=== PATIENT | male | born 1950 | race Caucasian/White ===

== ENCOUNTER → 2017-05-17 | Outpatient (CLI) | payer MEDICARE, OTHER ==
--- NOTE | 2017-05-17 17:29 | RAD ---
EXAM DESCRIPTION: Chest,2 Views CLINICAL HISTORY: 67 years Male, CORONARY ARTERIOSCLEROSIS COMPARISON: 1 fibroid 2014 TECHNIQUE: PA/lateral FINDINGS: The patient is poststernotomy. The heart is within range of normal. Peripheral infiltrate is observed in the right upper chest. Left chest is clear. No pleural fluid is seen. IMPRESSION: A patchy right upper lobe infiltrate is observed. Electronically signed by: Mikel Benito MD 05/17/2017 5:28 PM CDT
== END | disposition home or self-care (01) ==
LOC: YCFC.O 08:31
PROVIDERS: ATTEND Nurse Practitioner Family
DX: I25.10 Atherosclerotic heart disease of native coronary artery without angina pectoris (principal); Z12.5 Encounter for screening for malignant neoplasm of prostate; E78.5 Hyperlipidemia, unspecified; Z13.29 Encounter for screening for other suspected endocrine disorder; Z87.438 Personal history of other diseases of male genital organs
CPT/HCPCS: 36415; 71020; 80053; 80061; 84403; 84443; 85025; 93005; G0103

== ENCOUNTER → 2017-08-29 | Outpatient (CLI) | payer MEDICARE, OTHER ==
--- NOTE | 2017-08-29 11:20 | RAD ---
History: Smoking history. Chest x-ray: PA and lateral views are obtained and compared with 04/30/2017. Persistent somewhat irregular asymmetry right upper lung is demonstrated with perihilar density, stable and unchanged in this patient who has had prior mediastinal surgery and coronary stents. No pleural effusion. CT chest is recommended. Left lung remains symmetrically aerated. No bony abnormality. IMPRESSION: Right upper lobe persistent nodular asymmetry with questioned hilar density. CT chest is recommended. Electronically signed by: Claudia French MD 08/29/2017 11:19 AM CDT Workstation: [id number]
== END | disposition home or self-care (01) ==
LOC: RAD 08:37
DX: F17.200 Nicotine dependence, unspecified, uncomplicated (principal)

== ENCOUNTER → 2017-09-24 | Outpatient (CLI) | payer MEDICARE, OTHER ==
--- NOTE | 2017-09-25 08:06 | CT ---
Study: CT Chest. Indication: ABNORMAL XRAY Technique: CT imaging of the chest obtained after intravenous administration of contrast. This exam was performed according to our departmental dose-optimization program, which includes automated exposure control, adjustment of the mA and/or kV according to patient size and/or use of iterative reconstruction technique. Comparison: Radiographs August 29, 2017. Findings: Median sternotomy wires. Atherosclerosis great vessels, aorta, and coronary arteries. Heart size normal. Mildly prominent AP window lymph nodes with the largest measuring up to 10 x 17 mm. Calcified splenic granulomas. No acute osseous abnormality. Within the anterior lateral aspect of the right upper lobe there is a spiculated 14 mm pulmonary nodule with surrounding mild opacity. This in the setting of [id number] emphysema. No pleural effusion or pneumothorax. Impression: 14 mm spiculated pulmonary nodule with surrounding mild opacity in the right upper lobe. Bronchogenic carcinoma should be excluded in the setting of emphysema. Correlation with PET/CT versus biopsy recommended. Indeterminate enlarged AP window lymph nodes. Atherosclerosis. Electronically signed by: Rakan Batres MD 09/25/2017 8:05 AM [facility]
== END | disposition home or self-care (01) ==
LOC: CT 10:00
DX: R93.8 Abnormal findings on diagnostic imaging of other specified body structures (principal)

== ENCOUNTER → 2019-01-26 | Outpatient (CLI) | payer MEDICARE, OTHER | LOC: LAB.O 10:02 | PROVIDERS: ATTEND Nurse Practitioner Family | DX: I10 Essential (primary) hypertension (principal); R97.20 Elevated prostate specific antigen [PSA]; E78.2 Mixed hyperlipidemia ==

== ENCOUNTER → 2019-06-25 | Outpatient (CLI) | payer MEDICARE, OTHER ==
--- NOTE | 2019-06-25 10:43 | RAD ---
EXAM DESCRIPTION: Pelvis CLINICAL HISTORY: 69 years Male, PAIN IN LEFT HIP COMPARISON: None. FINDINGS: Single AP view of the pelvis shows no displaced pelvic fracture or malalignment. Mild bilateral hip joint space narrowing. Vascular calcifications. Degenerative disc disease at L4-5. The sacroiliac joints are fairly well-maintained. IMPRESSION: Mild degenerative changes of both hips and degenerative disc disease at L4-5. Atherosclerotic vascular disease. Electronically signed by: Gautam Chavira MD 06/25/2019 10:41 AM CDT
--- NOTE | 2019-06-25 10:44 | RAD ---
EXAM DESCRIPTION: Knee,Left Complete CLINICAL HISTORY: 69 years Male, PAIN IN LEFT KNEE COMPARISON: None. FINDINGS: Four views of the left knee show no acute fracture or malalignment. Advanced medial joint space narrowing with near [id number]-qcof alignment. Less advanced degenerative changes in the patellofemoral and lateral compartments. Tiny left knee joint effusion. Vascular calcifications. Surgical clips in the soft tissues medial aspect of the left knee. IMPRESSION: Tricompartmental degenerative changes including advanced degenerative changes in the medial compartment. Small left knee joint effusion. Atherosclerotic vascular disease. Electronically signed by: Gautam Chavira MD 06/25/2019 10:42 AM CDT
== END ==
LOC: RAD 08:10
PROVIDERS: ATTEND Orthopaedic Surgery
DX: M17.12 Unilateral primary osteoarthritis, left knee (principal); M16.0 Bilateral primary osteoarthritis of hip; M51.36 Other intervertebral disc degeneration, lumbar region; I70.90 Unspecified atherosclerosis

== ENCOUNTER → 2019-07-06 | Outpatient (CLI) | payer MEDICARE, OTHER ==
--- NOTE | 2019-07-06 12:52 | RAD ---
EXAM DESCRIPTION: Chest,2 Views CLINICAL HISTORY: PRE OP, LEFT TKA COMPARISON: Previous study August 29, 2017 TECHNIQUE: PA/lateral FINDINGS: Sternotomy wires are present. Right hemidiaphragm is mildly elevated. Cardiac bypass graft seen along the right side of the heart. Linear scarring in the right infrahilar and right lower lobe regions. Heart size is normal with normal pulmonary vascularity. No pleural effusion or pneumothorax. Lungs are otherwise clear with no consolidating infiltrate. Lateral view shows intact sternum and T-spine. IMPRESSION: No acute process is identified in the chest. Electronically signed by: Camacho Anne MD 07/06/2019 12:50 PM CDT
== END ==
LOC: LAB.O 10:51
PROVIDERS: ATTEND Orthopaedic Surgery
DX: Z01.818 Encounter for other preprocedural examination (principal); M17.12 Unilateral primary osteoarthritis, left knee; R97.20 Elevated prostate specific antigen [PSA]

== ENCOUNTER 2019-08-04 05:38 | Inpatient (IN) | payer MEDICARE, OTHER ==
--- NOTE | 2019-07-31 08:01 | HP ---
CHIEF COMPLAINT: Left knee pain. HISTORY OF PRESENT ILLNESS: Mr. Sutton is a 69-year-old male with a history of severe pain in the left knee that has been going on for several years. Mr. Sutton has had pain that has been refractory to conservative measures. Because of the refractory nature of this, he has requested operative intervention. Given the severity of his issues, his only operative choice would be total knee arthroplasty. After discussing the risks, benefits and alternatives to that, he has given informed consent for that. With regards to his knee, he has had knee arthroscopy and he is still having pain that is about an 8 most of the time. He has some slight relief with rest and aggravating factors include weightbearing and movement. This has been nontraumatic in onset. PAST SURGICAL HISTORY: 1. Lung lobectomy. MEDICATIONS: 1. Lisinopril. 2. Lovastatin. 3. Metoprolol. 4. Ranitidine. 5. Aspirin. PAIN CONTRACT: None. ALLERGIES: NO KNOWN DRUG ALLERGIES. CODE STATUS: DNR. IMMUNIZATIONS: Up to date. SOCIAL HISTORY: The patient does not use any illicit drugs. He does smoke and does drink on occasion. FAMILY HISTORY: None pertinent to today's complaint. REVIEW OF SYSTEMS: Negative except as indicated in the History of Present Illness. HEENT: The patient reports no symptoms. RESPIRATORY: The patient reports no symptoms. CARDIOVASCULAR: The patient reports no symptoms. GASTROINTESTINAL: The patient reports no symptoms GENITOURINARY: The patient reports no symptoms. MUSCULOSKELETAL: Negative except as noted in History of Present Illness. SKIN: The patient reports no symptoms. NEUROLOGIC: The patient reports no symptoms. PHYSICAL EXAMINATION: VITAL SIGNS: Blood pressure 131/73. Pulse 61. Height 5'6". Weight 140 pounds. MENTAL STATUS: The patient is awake, alert, and is able to give a good history and participate in the physical. The patient is oriented to person, place and time. SKIN: Normal tone and turgor. HEENT: Normocephalic, atraumatic. Pupils equal, round and reactive. Mucosal membranes are moist. NECK: Normal range of motion. No thyromegaly, no lymphadenopathy. CHEST: Normal respiratory excursion. CARDIAC: Regular rate and rhythm. No murmurs, rubs or gallops. MUSCULOSKELETAL: The bilateral upper extremities show full active range of motion without significant pain. He has intact sensation in the extremities and they are warm and well perfused. There is no crepitus and no deformity. He has no swelling and no malalignment. He has full information systems director strength. The right lower extremity shows full range of motion in the hip. He has full extension of the knee and flexion to about 130 degrees. He has intact sensation. There is no varus/valgus or anterior/posterior laxity. Strength is 5/5. The left lower extremity has full range of motion of the hip. He has slight valgus deformity to the knee. There is slight laxity in valgus stress testing. There is negative anterior drawer. There is moderate effusion. He has intact sensation. Strength is 5/5. He has full extension. Flexion is to about 120 degrees, but he has crepitus throughout that range. He has full range of motion in both ankles as well as both lower extremity digits. RADIOLOGY: My read of the x-rays shows severe arthritis with valgus deformity. ASSESSMENT: 1. Severe arthritis. PLAN: The plan at this point is for total knee arthroplasty. We have discussed the risks, benefits, and alternatives to that and the patient has given informed consent. [id number]
[~2019-08-04 05:38] MED LIST: MIDAZOLAM INJ 2 MG/2 ML VIAL ONE
[2019-08-04] MEDS ORDERED: SODIUM CHL 0.9% 100ML MINI-BAG 100 ML IVPB ONE (05:47)
[2019-08-04] MEDS ORDERED: TRANEXAMIC ACID 1,000 MG/10 ML VIAL ONE ×2 (05:48→05:49)
[2019-08-04] MEDS ORDERED: VANCOMYCIN HCL INJ 1,000 MG VIAL IVPB ONE ×3 (05:48→20:10)
[2019-08-04] MEDS ORDERED: SODIUM CHLORIDE 0.9% 250ML 250 ML ONE ×3 (05:48→20:09)
[2019-08-04] MEDS ORDERED: SODIUM CHLORIDE 0.9% 100ML 100 ML IVPB ONE (05:48)
[2019-08-04] MEDS ORDERED: LACTATED RINGERS 1,000 ML ONE ×2 (05:48→09:43)
[2019-08-04] MEDS ORDERED: ceFAZolin SODIUM 1 GM VIAL ONE ×2 (05:48→06:22)
[2019-08-04] MEDS ORDERED: MIDAZOLAM INJ 5 MG/5 ML VIAL ONE (06:34)
[2019-08-04] MEDS ORDERED: ACETAMINOPHEN IV 1000MG 100 ML ONE (06:34)
[2019-08-04] MEDS ORDERED: fentaNYL CITRATE INJ 50 MCG/ML AMP ONE (06:34)
[2019-08-04] MEDS ORDERED: MORPHINE SULFATE *EPIDURAL* 0.5 MG/ML VIAL ONE (06:34)
[2019-08-04] MEDS ORDERED: KETAMINE HCL 50 MG/ML SYG IV ONE (06:45)
[2019-08-04] MEDS ORDERED: TEMAZEPAM 15 MG CAP PO PRN (07:03)
[2019-08-04] MEDS ORDERED: SODIUM CHLORIDE 0.9% (FLUSH) 10 ML SYG IV PRN (07:03)
[2019-08-04] MEDS ORDERED: NALOXONE HCL INJ 0.4 MG/ML VIAL IV PRN (07:03)
[2019-08-04] MEDS ORDERED: MORPHINE SULFATE INJ 10 MG/ML VIAL IV PRN (07:03)
[2019-08-04] MEDS ORDERED: BENZOCAINE-MENTH LOZ (CEPACOL) 1 EA LOZ MT PRN (07:03)
[2019-08-04] MEDS ORDERED: PROMETHAZINE HCL INJ 12.5 MG in SODIUM CHLORIDE 0.9% 50ML 50 ML IVPB PRN (07:03)
[2019-08-04] MEDS ORDERED: HYDROcodone 5MG/APAP 325MG 1 EA TAB PO PRN (07:03)
[2019-08-04] MEDS ORDERED: BISACODYL SUPPOSITORY 10 MG PR PRN (07:03)
[2019-08-04] MEDS ORDERED: ZOLPIDEM TARTRATE 5 MG TAB PO PRN (07:03)
[2019-08-04] MEDS ORDERED: MAGNESIUM HYDROXIDE 30 ML UD PO PRN (07:03)
[2019-08-04] MEDS ORDERED: traMADol HCL 50 MG TAB PO PRN (07:03)
[2019-08-04] MEDS ORDERED: ACETAMINOPHEN 325 MG TAB PO PRN (07:03)
[2019-08-04] MEDS ORDERED: ACETAMINOPHEN 500 MG TAB PO PRN (07:03)
[2019-08-04] MEDS ORDERED: TRANEXAMIC ACID INJ 1,000 MG in SODIUM CHLORIDE 0.9% 100ML 100 ML IVPB ONE (07:03)
[2019-08-04] MEDS ORDERED: ALUMINUM & MAGNESIUM HYDROXIDE 30 ML UD PO PRN (07:03)
[2019-08-04] MEDS ORDERED: ONDANSETRON INJ 4 MG/2 ML VIAL IV PRN (07:03)
[2019-08-04] MEDS ORDERED: PROMETHAZINE HCL INJ 25 MG in SODIUM CHLORIDE 0.9% 50ML 50 ML IVPB PRN (07:03)
[2019-08-04] MEDS ORDERED: MORPHINE SULFATE INJ 10 MG/ML VIAL IM PRN (07:03)
[2019-08-04] MEDS ORDERED: MORPHINE PCA 1 MG/ML 100 ML BAG IVPB SCH (07:30)
[2019-08-04] MEDS: VANCOMYCIN HCL INJ 1,000 MG VIAL IVPB ONE ×2 (07:48→08:36)
[2019-08-04] MEDS: ceFAZolin SODIUM 1 GM VIAL ONE ×2 (07:48→08:36)
[2019-08-04] MEDS: BUPIVACAINE 0.5% 30 ML VIAL INJ ONE ×2 (07:49→08:36)
[2019-08-04] MEDS: BUPIVACAINE LIPOSOME 13.3 MG/ML VIAL INJ ONE ×2 (07:49→08:36)
[2019-08-04] MEDS ORDERED: ePHEDrine SULF 50 MG/ML IV ONE (10:00)
[2019-08-04] MEDS ORDERED: SODIUM CHLORIDE 0.9% 50 ML VIAL INJ ONE (10:00)
[2019-08-04] MEDS ORDERED: diphenhydrAMINE HCL 50 MG/ML VIAL IV ONE (10:00)
[2019-08-04] MEDS ORDERED: DEXAMETHASONE INJ 10 MG/ML VIAL IV ONE (10:00)
[2019-08-04] MEDS ORDERED: LIDOCAINE 1% 10 ML VIAL INJ ONE (10:00)
[2019-08-04] MEDS ORDERED: raNITIdine HCL INJ 25 MG/ML VIAL IV ONE (10:00)
[2019-08-04] MEDS ORDERED: MAGNESIUM SULFATE INJ 1 GM/2 ML VIAL IVPB ONE (10:00)
[2019-08-04] MEDS ORDERED: PROPOFOL 200 MG/20 ML VIAL IV ONE (10:00)
[2019-08-04] MEDS: MAGNESIUM OXIDE 400 MG TAB PO SCH (12:34)
[2019-08-04] MEDS: CELECOXIB 100 MG CAP PO SCH ×2 (12:34→17:34)
[2019-08-04] MEDS: IV SET AND CAP CHANGE INJ INJ SCH (12:35)
[2019-08-04] MEDS: NICOTINE PATCH 14 MG TD SCH ×2 (13:27→21:47)
[2019-08-04] MEDS ORDERED: ceFAZolin SODIUM 2 GRAMS PREMI 50 ML IVPB ONE ×2 (15:44→20:09)
[2019-08-04] MEDS: ceFAZolin SODIUM 2 GRAMS PREMI 2 GM in PREMIX BAG 1 BAG IVPB SCH (16:05)
[2019-08-04] MEDS: VANCOMYCIN HCL INJ 1,000 MG in SODIUM CHLORIDE 0.9% 250ML 250 ML IVPB SCH (17:38)
[2019-08-04] MEDS: DEX 5% W/NACL 0.45% 1000ML 1,000 ML IVS PRN (19:03)
[2019-08-04] MEDS ORDERED: ENOXAPARIN SODIUM 30 MG/0.3 ML SYG SUBCU ONE (20:09)
--- NOTE | 2019-08-04 20:39 | CONS ---
DATE OF CONSULTATION: 08/04/19 SUPERVISING PHYSICIAN: Mike Anderson M.D. REASON FOR CONSULTATION: Medical management post total left knee. HISTORY OF PRESENT ILLNESS: Mr. Sutton is a 69 year-old male patient that has a longstanding history of severe pain in his left knee. The pain had been not responding to any certain extent to conservative treatment measures. 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 Given that he had attempted multiple outpatient treatment plans with no results, he requested elective total knee arthroplasty for pain relief. He has also had knee arthroscopy for almost 8 times without any significant relief. He was denying any trauma to the knee. He was admitted for elective left total knee arthroplasty. He had no intraoperative complications. He was seen in the immediate postoperative state and was in stable condition. PAST MEDICAL HISTORY: 1. Hyperlipidemia. 2. Chronic nicotine addiction in a smoker. 3. Essential hypertension. 4. Coronary artery disease. 5. Benign prostatic hypertrophy. 6. History of right lung cancer with a right upper lobe lobectomy in 2019. PAST SURGICAL HISTORY: 1. Coronary artery bypass graft in 2013. 2. Right upper lobectomy in 2018. HOME MEDICATIONS: 1. Lisinopril 40 mg daily. 2. Lovastatin 20 mg daily. 3. Aspirin 81 mg daily. 4. Metoprolol 50 mg b.i.d. 5. Ranitidine 150 mg daily. ALLERGIES: NO KNOWN DRUG ALLERGIES. FAMILY HISTORY: Noncontributory, but he does have a history of malignant tumors in the mouth in his mother. Father had a myocardial infarction and at age 43. He has 1 sister who had ALS. SOCIAL HISTORY: The patient is a trucker hand. He is . Lives in [place], [place] by himself. He does smoke approximately a pack of cigarettes a day and drinks 3 to 4 beers every other day on a regular basis. He denies any illicit drugs. REVIEW OF SYSTEMS: CONSTITUTIONAL: Denies any fevers, chills, general malaise or unexplained weight loss. HEENT: Negative for any headaches, vision changes, ear aches, sore throat or nasal congestion. RESPIRATORY: Denies any shortness of breath, wheezing or coughing. CARDIOVASCULAR: Denies any chest pains, palpitations or syncopal episodes. GASTROINTESTINAL: Denies any nausea, vomiting, diarrhea, constipation or abdominal pains. GENITOURINARY: Denies any dysuria, hematuria or polyuria. MUSCULOSKELETAL: As noted in history of present illness. NEUROLOGIC: Denies any ataxia, seizures, syncopal episodes or other neurological deficits. SKIN: Denies any unexplained lesions, rashes or moles. HEMATOLOGIC: Denies any easy bleeding or unexplained bruising or transfusion reactions. PHYSICAL EXAMINATION: VITAL SIGNS: Temperature 97.6, pulse 53, blood pressure 123/74, respirations 16, satting 100% on 2 liters nasal cannula. Admission weight is 65.2 kg. GENERAL: The patient is resting comfortably visiting with family. Appears to be in no acute distress. He is alert. HEENT: Tympanic membranes are clear bilaterally. Oropharynx is pink and moist without any lesions. NECK: Supple, non-tender. Full range of motion. No jugular venous distention. CHEST: Lung sounds are clear to auscultation bilaterally without any rhonchi, wheezing or rales. HEART: Regular rate and rhythm without appreciable murmurs, gallops, or rubs. ABDOMEN: Soft, non-tender. Positive bowel sounds. EXTREMITIES: Left knee has an Iceman dressing in place. Distally pulses are strong. Capillary refill is brisk. The patient still has a spinal block in place that was placed at surgery. NEUROLOGIC: He is alert and oriented times three. Cranial nerves II-XII are grossly intact. LABORATORY: Preoperative drug screen was negative. RADIOLOGY: No radiographic studies for review. ASSESSMENT: 1. Postoperative day #0 for a left total knee arthroplasty having failed to respond to conservative outpatient treatment measures. Surgery performed by Dr. Michael Mcdonough. 2. Chronic hyperlipidemia. 3. Chronic nicotine dependency in a smoker. 4. Essential hypertension. 5. Coronary artery disease with a history of coronary artery bypass graft in 2013. 6. Benign prostatic hypertrophy. 7. History of right lung cancer with a right upper lobectomy. PLAN: Will follow the patient as he continues to progress through his postoperative phase, physical therapy and rehabilitation efforts. I will review his medications and update those, and restart those as appropriate to care. He remains on DVT prophylaxis per protocol. Given that he has nicotine addiction and a 1 pack a day smoker, I have also started him on a nicotine patch. Will anticipate his length of stay to be 2 to 3 days. I did discuss rehabilitation after discharge. The family wants to take him to [place] where they live. We discussed that [facility] would be an option in [place] and I did call Damari with [facility] in [place] and she would be glad to do a consultation and facilitate that arrangement for the patient to go to rehab in [place]. Until he can transfer to outpatient management will continue to monitor and treat as needed. #[id number] [facility]
[2019-08-04] MEDS: METOPROLOL TARTRATE 50 MG TAB PO SCH (20:58)
[2019-08-04] MEDS: SIMVASTATIN 10 MG TAB PO SCH (20:58)
[2019-08-04] MEDS: DOCUSATE CALCIUM 240 MG CAP PO SCH (20:58)
[2019-08-04] MEDS: ENOXAPARIN SODIUM 30 MG/0.3 ML SYG SUBCU SCH (22:34)
[2019-08-05] MEDS: ceFAZolin SODIUM 2 GRAMS PREMI 2 GM in PREMIX BAG 1 BAG IVPB SCH ×2 (00:03→09:52)
[2019-08-05] MEDS: VANCOMYCIN HCL INJ 1,000 MG in SODIUM CHLORIDE 0.9% 250ML 250 ML IVPB SCH (06:02)
[2019-08-05] MEDS ORDERED: ceFAZolin SODIUM 2 GRAMS PREMI 50 ML IVPB ONE (07:09)
--- NOTE | 2019-08-05 08:25 | RAD ---
PROVIDED CLINICAL HISTORY/REASON FOR EXAM: LEFT TKA Findings/impression: One intraoperative fluoroscopic image of a left knee arthroplasty. No hardware complication identified. Dose: Not documented Time: Five seconds Electronically signed by: Roberto Tovar MD 08/05/2019 8:23 AM CDT
[2019-08-05] MEDS: NICOTINE PATCH 14 MG TD SCH (09:31)
[2019-08-05] MEDS: ASPIRIN (ENTERIC COATED) 81 MG TAB PO SCH (09:31)
[2019-08-05] MEDS: METOPROLOL TARTRATE 50 MG TAB PO SCH ×2 (09:31→20:56)
[2019-08-05] MEDS: CELECOXIB 100 MG CAP PO SCH ×2 (09:31→17:10)
[2019-08-05] MEDS: MAGNESIUM OXIDE 400 MG TAB PO SCH (09:31)
[2019-08-05] MEDS: LISINOPRIL 10 MG TAB PO SCH (09:32)
--- NOTE | 2019-08-05 09:50 | OP ---
DATE OF PROCEDURE: 08/04/19 PREOPERATIVE DIAGNOSIS: 1. Osteoarthritis of the knee. POSTOPERATIVE DIAGNOSIS: 1. Osteoarthritis of the knee. PROCEDURE: 1. Total knee arthroplasty. SURGEON: Michael Mcdonough MD. MIX MAKER: Darren Mace CST, SA-C. ANESTHESIA: General anesthesia. COMPLICATIONS: None. FINDINGS: Severe arthritis of the knee. INDICATION: Mr. Sutton has a history of severe pain getting progressively worse. Because of the ongoing pain, he has requested operative intervention. After discussing the risks, benefits and alternatives to that, the patient has given informed consent for total knee arthroplasty. PROCEDURE: The patient was brought to the Operating Room and placed in supine position. General anesthesia was induced and the patient's leg was sterilely prepped and draped. Following prepping and draping, the distal femur was exposed and using an intramedullary guide, the distal femoral cut was made. The appropriate sized cutting block was measured, pinned into place, and the anterior, posterior, and chamfer cuts were made. The ACL was transected and the tibia was subluxed. Both the medial and lateral menisci were removed. An intramedullary guide was used to make the proximal tibial cut. The appropriate sized base plate was placed and a trial polyethylene was placed. The trial femur was placed, the knee was reduced, and the knee was taken through a range of motion. The knee was stable in anterior, posterior, varus and valgus stress. The patella tracked anatomically without evidence of subluxation or dislocation. After trialing, the trial components were removed and the bony surfaces were thoroughly irrigated with saline. Following irrigation, the surfaces were dried and the final components were cemented into place. The excess cement was removed and the remaining cement was allowed to cure. The knee was again taken through a range of motion to confirm stability. The wound was then irrigated with saline and closure was performed using PDS to approximate the arthrotomy followed by closure of the subcutaneous tissues with a combination of running and interrupted Monocryl sutures. Sterile dressing was placed. The patient was awoken from anesthesia and taken to Recovery. POSTOPERATIVE PLAN: The patient will be weight-bearing as tolerated on postoperative day 1. COMPONENTS: [email or web address] Triathlon knee, size 4 femur, size 4 tibia, 11 mm insert. #[id number] [facility]
[2019-08-05] MEDS: ENOXAPARIN SODIUM 30 MG/0.3 ML SYG SUBCU SCH ×2 (10:27→23:02)
--- NOTE | 2019-08-05 11:28 | RAD ---
EXAM DESCRIPTION: Knee,Left 1 or 2 Views CLINICAL HISTORY: 69 years Male, TKA TECHNIQUE: 2 views of the left knee were performed. COMPARISON: None available. FINDINGS: The visualized bones appear well mineralized changes of total knee arthroplasty with expected postsurgical changes in the surrounding soft tissues. IMPRESSION: Changes of total knee arthroplasty with expected postsurgical changes in the surrounding soft tissues. Electronically signed by: Bonnie Campbell MD 08/05/2019 11:26 AM CDT
[2019-08-05] MEDS: HYDROcodone 10MG/APAP 325MG 1 EA TAB PO PRN (18:15)
[2019-08-05] MEDS: CYCLOBENZAPRINE HCL 10 MG TAB PO PRN (18:15)
[2019-08-05] MEDS: DEX 5% W/NACL 0.45% 1000ML 1,000 ML IVS PRN (19:45)
[2019-08-05] MEDS: SIMVASTATIN 10 MG TAB PO SCH (20:56)
[2019-08-05] MEDS: DOCUSATE CALCIUM 240 MG CAP PO SCH (20:56)
[2019-08-06] MEDS: HYDROcodone 10MG/APAP 325MG 1 EA TAB PO PRN ×3 (06:24→20:23)
[2019-08-06] MEDS: CYCLOBENZAPRINE HCL 10 MG TAB PO PRN ×2 (08:53→20:23)
[2019-08-06] MEDS: CELECOXIB 100 MG CAP PO SCH ×2 (08:54→17:42)
[2019-08-06] MEDS: MAGNESIUM OXIDE 400 MG TAB PO SCH (08:54)
[2019-08-06] MEDS: METOPROLOL TARTRATE 50 MG TAB PO SCH ×2 (08:54→20:12)
[2019-08-06] MEDS: NICOTINE PATCH 14 MG TD SCH (08:55)
[2019-08-06] MEDS: SODIUM CHLORIDE 0.9% (FLUSH) 10 ML SYG IV SCH ×2 (09:04→20:12)
[2019-08-06] MEDS: ASPIRIN (ENTERIC COATED) 81 MG TAB PO SCH (09:04)
[2019-08-06] MEDS: LISINOPRIL 10 MG TAB PO SCH (09:04)
--- NOTE | 2019-08-06 09:50 | PN ---
SUPERVISING PHYSICIAN: Mike Anderson MD DATE: 08/05/19 SUBJECTIVE: The patient continues to do well with rehabilitation. He has good control of his pain management. He has no further complaints. OBJECTIVE: VITAL SIGNS: Temperature 98.1. Pulse 78. Blood pressure 167/85. Respirations 18. Saturation 94% on room air. GENERAL: The patient is resting comfortably, appears in no acute distress. CHEST: Lung sounds are clear to auscultation. HEART: Regular rate and rhythm. ABDOMEN: Soft, nontender. Positive bowel sounds. EXTREMITIES: Left knee has a large bulky dressing is in place and is clean and dry. Distal pulses are strong. Capillary refills is brisk. NEUROLOGIC: Alert and oriented times three. LABORATORY: Postoperative hemoglobin 11.9, hematocrit 35.0. ASSESSMENT: 1. Postoperative day #1 for a left total knee arthroplasty having failed to respond to conservative outpatient treatment measures. Surgery performed by Dr. Michael Mcdonough. 2. Chronic hyperlipidemia. 3. Chronic nicotine dependency in a current smoker. 4. Essential hypertension. 5. Coronary artery disease with a history of coronary artery bypass graft in 2013. 6. Benign prostatic hypertrophy. 7. History of right lung cancer with a right upper lobectomy. PLAN: We will continue to follow the patient as he progresses through his physical therapy efforts. I encouraged good pulmonary hygiene. I encouraged him to use pain control prior to physical therapy efforts. At this point, plan for outpatient therapy through [facility]. I have discussed this and Damari has been to see the patient and is working on arrangements. We will anticipate hopefully discharging either Saturday or Saturday. Until then, we will continue to monitor and treat as needed. #[id number] [facility]
--- NOTE | 2019-08-06 09:58 | PN ---
DATE: 08/05/19 SUBJECTIVE: Mr. Sutton is doing well. He has no significant pain. OBJECTIVE: Afebrile. Vital signs stable. Dressing is clean, dry and intact. ASSESSMENT: Status post total knee arthroplasty. PLAN: The plan at this point is begin weightbearing as tolerated today. #[id number] [facility]
--- NOTE | 2019-08-06 09:59 | PN ---
DATE: 08/06/19 SUBJECTIVE: Mr. Sutton is doing well. He has no significant pain. OBJECTIVE: Afebrile. Vital signs stable. Wound is clean. There are no signs or symptoms of infection. ASSESSMENT: Status post total knee arthroplasty. PLAN: The plan at this point is to continue with weightbearing as tolerated today. [facility][id number] [facility]
[2019-08-06] MEDS: ENOXAPARIN SODIUM 30 MG/0.3 ML SYG SUBCU SCH ×2 (11:14→23:11)
[2019-08-06] MEDS: DOCUSATE CALCIUM 240 MG CAP PO SCH (20:12)
[2019-08-06] MEDS: SIMVASTATIN 10 MG TAB PO SCH (20:12)
--- NOTE | 2019-08-06 20:48 | PN ---
DATE: 08/06/19 SUPERVISING PHYSICIAN: Mike Anderson M.D. SUBJECTIVE: The patients is doing well with his physical therapy. He has had good pain control. He has had no further complaints. OBJECTIVE: VITAL SIGNS: temperature 98.4, pulse 58, blood pressure 159/85, respirations 16 to 18, satting 96% on room air. GENERAL: The patient is resting comfortably. Appears to be in no acute distress. He is alert. CHEST: Clear to auscultation. HEART: Regular rate and rhythm. ABDOMEN: Soft, non-tender. Positive bowel sounds. EXTREMITIES: Left leg now has an island dressing in place which is clean and dry with no signs of infection or drainage. Distally pulses are strong. Capillary refill is brisk. NEUROLOGIC: He is alert and oriented times three. LABORATORY: No additional laboratory studies. RADIOLOGY: No additional radiographic studies. ASSESSMENT: 1. Postoperative day #2 for a left total knee arthroplasty having failed to respond to conservative outpatient treatment measures. Surgery performed by Dr. Michael Mcdonough. 2. Chronic hyperlipidemia. 3. Chronic nicotine dependency in a current smoker. 4. Essential hypertension. 5. Coronary artery disease with a history of coronary artery bypass graft in 2013. 6. Benign prostatic hypertrophy. 7. History of right lung cancer with a right upper lobectomy. PLAN: Will continue to follow the patient through his physical therapy and rehabilitation efforts. Plans have been secured for [facility] in [place]. The nurses have all of the logistics and numbers for transport. There may need to be a dock to dock which will be determined tomorrow. Until we can transfer him to [facility] in [place] will continue to monitor and treat as needed. [facility][id number] [facility]
[2019-08-07] MEDS: CELECOXIB 100 MG CAP PO SCH (07:19)
[2019-08-07] MEDS: IV SET AND CAP CHANGE INJ INJ SCH (07:20)
[2019-08-07 08:20] VITALS: BP 131/75; TEMP 98.4; O2SAT 95
[2019-08-07] MEDS: SODIUM CHLORIDE 0.9% (FLUSH) 10 ML SYG IV SCH (09:20)
[2019-08-07] MEDS: MAGNESIUM OXIDE 400 MG TAB PO SCH (09:20)
[2019-08-07] MEDS: ASPIRIN (ENTERIC COATED) 81 MG TAB PO SCH (09:20)
[2019-08-07] MEDS: LISINOPRIL 10 MG TAB PO SCH (09:20)
[2019-08-07] MEDS: NICOTINE PATCH 14 MG TD SCH (09:20)
[2019-08-07] MEDS: METOPROLOL TARTRATE 50 MG TAB PO SCH (09:20)
[2019-08-07] MEDS: HYDROcodone 10MG/APAP 325MG 1 EA TAB PO PRN (10:16)
--- NOTE | 2019-08-07 10:49 | DS ---
SUPERVISING PHYSICIAN: Mike Anderson MD DISCHARGE DIAGNOSIS: 1. Postoperative day #3 for a left total knee arthroplasty having failed to respond to conservative outpatient treatment measures. Surgery was performed by Dr. Michael Mcdonough, orthopedic surgeon. 2. Chronic hyperlipidemia. 3. Chronic nicotine dependency in a current smoker. 4. Essential hypertension. 5. Coronary artery disease with a history of coronary artery bypass graft in 2013. 6. Benign prostatic hypertrophy. 7. History of right lung cancer with a right upper lobectomy. HISTORY OF PRESENT ILLNESS: This is a 69-year-old male patient that has a longstanding history of severe pain in his left knee. The pain had not responded to any conservative treatment measures. 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 He requested elective total knee arthroplasty for pain relief by Dr. Michael Mcdonough, orthopedic surgeon. On the day of admission, he was taken to the Operating Room for an elective left total knee arthroplasty. He had no intraoperative complications. He was seen in the immediate postoperative state on the Medical/Surgical Floor and was in stable condition. HOSPITAL COURSE: The patient went through the routine postoperative treatment and therapy without any problems. He was titrated off of his ANTIQUE DEALER and switched to oral pain medications. His home medications were re-started. A nicotine patch was ordered for him. Smoking cessation was also discussed. He was on DVT prophylaxis during his stay here. The family lives in [place] and they requested that he be discharged from here to [facility] in [place]. [facility] in [place] has accepted him and he will be discharged to [facility] in [place] in stable condition. LABORATORY: Hemoglobin 11.9 and hematocrit 35.0. Urine drug screen was negative. X-rays are per the EMR. Surgery notes are per the EMR. DISCHARGE PLAN: In addition to his routine medications, he will be continued on 8 additional days of Xarelto as well as his pain medication and his Flexeril. He is to followup with Dr. Mcdonough after discharge from [facility]. He is to resume his previous diet and his activity is as per Physical Therapy. He is to return to the hospital or followup with Dr. Mcdonough for any problems or complications. DISCHARGE MEDICATIONS: 1. Ranitidine. 2. Metoprolol. 3. Lovastatin. 4. Lisinopril. 5. Aspirin. 6. Cyclobenzaprine. 7. Hydrocodone. 8. Nicotine patches. 9. Xarelto. [facility][id number] [facility]
--- NOTE | 2019-08-07 13:40 | PN ---
DATE: 08/07/19 SUBJECTIVE: Mr. Sutton is doing well. He is walking and is up to a chair right now. OBJECTIVE: Afebrile. Vital signs stable. Wound is clean. There are no signs or symptoms of infection. ASSESSMENT: Status post total knee arthroplasty. PLAN: The plan at this point is for him to be transferred to inpatient rehab in [place] per his request. #[id number] [facility]D
[2019-08-07] MEDS ORDERED: BISACODYL SUPPOSITORY 10 MG PR ONE (21:00)
[2019-08-07] MEDS ORDERED: MAGNESIUM HYDROXIDE 30 ML UD PO ONE (21:00)
== END 2019-08-07 10:35 | DRG 470 ==
LOC: AMB 05:38 → MS 10:40
PROVIDERS: ADMIT Orthopaedic Surgery; ATTEND Nurse Practitioner Acute Care
PROC: 0SRD0J9 Replacement of Left Knee Joint with Synthetic Substitute, Cemented, Open Approach (ICD-10-PCS; principal; 2019-08-04 06:49)
DX: M17.12 Unilateral primary osteoarthritis, left knee (principal); E78.5 Hyperlipidemia, unspecified; I10 Essential (primary) hypertension; N40.0 Benign prostatic hyperplasia without lower urinary tract symptoms; I25.10 Atherosclerotic heart disease of native coronary artery without angina pectoris; F17.210 Nicotine dependence, cigarettes, uncomplicated; Z66 Do not resuscitate; Z90.2 Acquired absence of lung [part of]; Z95.1 Presence of aortocoronary bypass graft; Z79.82 Long term (current) use of aspirin; Z85.118 Personal history of other malignant neoplasm of bronchus and lung; Z79.899 Other long term (current) drug therapy

== ENCOUNTER 2020-02-11 10:50 | Emergency (ER) | payer MEDICARE, OTHER ==
--- NOTE | 2020-02-11 11:09 | ED.PDOC ---
History of Present Illness - General Stated Complaint: tingling sensation in the right lower extremity Time Seen by Provider: 02/11/20 11:03 Additional Information: this is a 69 year old male, that presents after he is noticing like his righ leg is asleep. patient describes it a tingling sensation patients is able to walk and with a steady gait, patient stated that he was working yesterday and he kept going up and down [employer] and at the end of the day he started feeling some and pain and could not finish his job patient is a smoker and has had an history of coronary artery disease and CABG - History of Present Illness Timing/Duration: other - yesterday Improving Factors: nothing Worsening Factors: nothing Associated Symptoms: denies symptoms Allergies/Adverse Reactions: Allergies NO KNOWN ALLERGY Allergy (Unverified 02/11/20 11:06) Home Medications: Ambulatory Orders Aspirin [Aspirin Adult Low Strengt] 81 mg PO DAILY 07/31/19 Lisinopril 40 mg PO DAILY 07/31/19 Lovastatin 20 mg PO DAILY 07/31/19 Metoprolol Tartrate 50 mg PO BID 07/31/19 Ranitidine HCl [Acid Shoe Lining Fitter] 150 mg PO DAILY 07/31/19 Cyclobenzaprine HCl [Flexeril] 10 mg PO Q8H PRN tab 08/07/19 HYDROcodone 5MG/APAP 325MG [[place] 5/325] 1 ea PO Q4H PRN tab 08/07/19 Nicotine Patch 14 mg [Habitrol Patch 14mg] 1 ea TD DAILY patch 08/07/19 Rivaroxaban [Xarelto] 10 mg PO DAILY #8 tab 08/07/19 Tramadol HCl 50 mg PO Q6HR #20 tab 02/11/20 Review of Systems - Review of Systems Constitutional: States: no symptoms reported EENTM: States: no symptoms reported Respiratory: States: no symptoms reported Cardiology: States: no symptoms reported Gastrointestinal/Abdominal: States: no symptoms reported Genitourinary: States: no symptoms reported Musculoskeletal: States: no symptoms reported Skin: States: no symptoms reported Neurological: States: no symptoms reported Endocrine: States: no symptoms reported Hematologic/Lymphatic: States: no symptoms reported Past Medical History (General) - Patient Medical History Hx Seizures: No Hx Stroke: No Hx Asthma: No Hx of COPD: No Hx Congestive Heart Failure: No Hx Pacemaker: No Hx Hypertension: Yes Hx Diabetes: No Hx MRSA: No - Social History Hx Alcohol Use: No Hx Substance Use: No Hx Physical Abuse: No Hx Emotional Abuse: No Family Medical History - Family History Mother Family History: Unknown Physical Exam - Physical Exam General Appearance: Alert, Anxious, Comfortable, Well Developed, Well Groomed, Well Hydrated, Well Nourished Eye Exam: bilateral normal Ears, Nose, Throat: hearing grossly normal, normal ENT inspection, normal pharynx Neck: non-tender, full range of motion, supple, normal inspection, carotid bruit Respiratory: chest non-tender, lungs clear, normal breath sounds, no respiratory distress, no accessory muscle use Cardiovascular/Chest: normal peripheral pulses, regular rate, rhythm, no edema, no gallop, no JVD, no murmur Gastrointestinal/Abdominal: normal bowel sounds, non tender, soft, no organomegaly, no pulsatile mass Back Exam: normal inspection, no CVA tenderness, no vertebral tenderness Extremity: normal range of motion, non-tender, normal inspection, no pedal edema, normal capillary refill 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 Patient has not had any back pain. No trauma, patient does this that He has had an history of peripheral vascular disease, on physical exam the leg was warm to touch. Will order labs, head ct , right lower extremity venous/arterial duppler dopplex patient has no neurological deficits and no distress 02/11/20 13:21 no dvt on ultrasound but extensive artherosclerosis seen in patient right leg but with no acute claudication. patient is pain free and doest appeart in any distress and will be discharge home with Tramadol, outpatient follow up with vascular surgeon keep extremity elevated and may use ice packs - EKG/XRAY/CT EKG: Felipe - sinus bradycardia, no st elevation, no depression, no acute ischemic changes Departure - Departure Clinical Impression: Peripheral vascular disease Disposition: Discharge to Home or Self Care Instructions: Peripheral Vascular (Arterial) Disease (DC) Referrals: Ann Jara NP [Primary Care Provider] - 1-2 Weeks Prescriptions: Tramadol HCl 50 mg PO Q6HR #20 tab Home Medications: Ambulatory Orders Aspirin [Aspirin Adult Low Strengt] 81 mg PO DAILY 07/31/19 Lisinopril 40 mg PO DAILY 07/31/19 Lovastatin 20 mg PO DAILY 07/31/19 Metoprolol Tartrate 50 mg PO BID 07/31/19 Ranitidine HCl [Acid Shoe Lining Fitter] 150 mg PO DAILY 07/31/19 Cyclobenzaprine HCl [Flexeril] 10 mg PO Q8H PRN tab 08/07/19 HYDROcodone 5MG/APAP 325MG [[place] 5/325] 1 ea PO Q4H PRN tab 08/07/19 Nicotine Patch 14 mg [Habitrol Patch 14mg] 1 ea TD DAILY patch 08/07/19 Rivaroxaban [Xarelto] 10 mg PO DAILY #8 tab 08/07/19 Tramadol HCl 50 mg PO Q6HR #20 tab 02/11/20 Additional Instructions: keep extremity elevated, may use ice packs and please follow up with vascular surgeon
--- NOTE | 2020-02-11 11:35 | RAD ---
EXAM DESCRIPTION: Chest,1 View CLINICAL HISTORY: 69 years Male, right leg tingling COMPARISON: None. TECHNIQUE: AP portable chest. FINDINGS: Heart size is normal with normal pulmonary vascularity. No consolidating infiltrate. Sternotomy wires are present. No pulmonary mass or worrisome nodule. No pneumothorax or pleural effusion. Bones are unremarkable. IMPRESSION: Clear lungs. No consolidating infiltrate. Electronically signed by: Camacho Anne MD 02/11/2020 11:34 AM CDT
--- NOTE | 2020-02-11 11:41 | CT ---
EXAM DESCRIPTION: CT head without contrast CLINICAL HISTORY: tingling COMPARISON: None available TECHNIQUE: Noncontrast head CT was performed with routine protocol. FINDINGS: Normal sherman-white matter differentiation. Ventricles and sulci are normal for age. No high density hemorrhage, focal edema or shift of the midline. No sulcal effacement. Normal orbital contents. Basilar cisterns appear clear. Cerumen accumulation in the left external auditory canal. Intact calvarium with no fracture or lytic lesion. Calcified intracranial internal carotid arteries. Normal aeration of tympanic cavities and mastoid air cells. Hypoplastic right maxillary sinus with nodular mucosal thickening. Left maxillary sinus is clear. Patchy opacification of ethmoid air cells.. Skull base appears intact. Symmetrical internal auditory canals. IMPRESSION: No acute intracranial pathologic process. This exam was performed according to our departmental dose-optimization program, which includes automated exposure control, adjustment of the mA and/or kV according to patient size and/or use of iterative reconstruction technique. Total DLP equals 859.97 mGycm. Electronically signed by: Camacho Anne MD 02/11/2020 11:40 AM CDT
--- NOTE | 2020-02-11 13:10 | US ---
EXAM DESCRIPTION: Extremity,Lower RT Arteries (accession [id number]), Venous,Lower Extremity RT (accession [id number]): ULTRASOUND. CLINICAL HISTORY: rule out claudication COMPARISON: None Available. TECHNIQUE: Hardin-scale and doppler sonographic evaluation of the deep venous system of the right lower extremity. Doppler evaluation of the bilateral lower extremity arterial flow waveforms and velocities. FINDINGS: Doppler evaluation shows normal color flow and normal phasicity and augmentation of the right common femoral vein, femoral vein, popliteal vein, greater saphenous vein, junction with the CFV. Also normal color flow and normal phasicity and augmentation of the peroneal, and posterior tibial vein. The right lower extremity deep veins were completely compressible; normal occlusion with transducer pressure. Hardin-scale survey showed no echogenic thrombus within these veins. Arterial waveforms in the right lower extremity are monophasic with decreasing velocity from the right common femoral artery through the right posterior tibial artery. The latter artery demonstrates significantly flattened waveform. No flow in the right dorsalis pedis artery.. Comments: Significant disease, right lower extremity arterial system with decreased right common femoral artery velocity and further decrease in velocity from proximal to distal. IMPRESSION: 1. Duplex ultrasound evaluation of the right lower extremity deep venous system showing no evidence of thrombosis. 2. Significant atherosclerotic occlusive disease, with decreased velocity in the right common femoral artery which is monophasic and decreasing monophasic waveforms proximal to distal occlusion of the right dorsalis pedis artery. Consider CTA to Include abdominal aorta and bilateral lower extremity arterial systems. Electronically signed by: Darren Mckeon MD 02/11/2020 1:09 PM CDT
--- NOTE | 2020-02-11 13:11 | US ---
EXAM DESCRIPTION: Extremity,Lower RT Arteries (accession [id number]), Venous,Lower Extremity RT (accession [id number]): ULTRASOUND. CLINICAL HISTORY: rule out claudication COMPARISON: None Available. TECHNIQUE: Hardin-scale and doppler sonographic evaluation of the deep venous system of the right lower extremity. Doppler evaluation of the bilateral lower extremity arterial flow waveforms and velocities. FINDINGS: Doppler evaluation shows normal color flow and normal phasicity and augmentation of the right common femoral vein, femoral vein, popliteal vein, greater saphenous vein, junction with the CFV. Also normal color flow and normal phasicity and augmentation of the peroneal, and posterior tibial vein. The right lower extremity deep veins were completely compressible; normal occlusion with transducer pressure. Hardin-scale survey showed no echogenic thrombus within these veins. Arterial waveforms in the right lower extremity are monophasic with decreasing velocity from the right common femoral artery through the right posterior tibial artery. The latter artery demonstrates significantly flattened waveform. No flow in the right dorsalis pedis artery.. Comments: Significant disease, right lower extremity arterial system with decreased right common femoral artery velocity and further decrease in velocity from proximal to distal. IMPRESSION: 1. Duplex ultrasound evaluation of the right lower extremity deep venous system showing no evidence of thrombosis. 2. Significant atherosclerotic occlusive disease, with decreased velocity in the right common femoral artery which is monophasic and decreasing monophasic waveforms proximal to distal occlusion of the right dorsalis pedis artery. Consider CTA to Include abdominal aorta and bilateral lower extremity arterial systems. Electronically signed by: Darren Mckeon MD 02/11/2020 1:09 PM CDT
[2020-02-11 13:40] VITALS: BP 151/78; TEMP 98; O2SAT 97
== END 2020-02-11 13:40 | disposition home or self-care (01) ==
LOC: ER 10:50
DX: I73.9 Peripheral vascular disease, unspecified (principal); R00.1 Bradycardia, unspecified; I10 Essential (primary) hypertension; I25.10 Atherosclerotic heart disease of native coronary artery without angina pectoris; F17.200 Nicotine dependence, unspecified, uncomplicated; Z79.82 Long term (current) use of aspirin; Z79.899 Other long term (current) drug therapy; Z95.1 Presence of aortocoronary bypass graft

== ENCOUNTER 2020-06-03 09:42 | Emergency (ER) | payer MEDICARE, OTHER ==
--- NOTE | 2020-06-03 09:55 | ED.PDOC ---
History of Present Illness - General Time Seen by Provider: 06/03/20 09:54 Source: patient - History of Present Illness Initial Comments: 70-year-old male with PMH of hypertension, BPH who presents with chief complaint of difficulty urinating and pain with urination. Reports symptoms began about 1 week ago and have been gradually worsening. He reports now marked difficulty and straining in order to urinate. Urinating only in small volumes and urine is cloudy. Reports sharp burning moderate pains during urination. He has not taken any medication to help relieve the symptoms. Denies any fevers, chills, abdominal pain, back pain, weakness, numbness. Denies any hematuria. Reports history of mild to moderate intermittent urinary issues in the past, which is been going on for several years now. He saw a urologist several years ago who stated that he could operate but it might make the patient impotent. He has never had an indwelling Simons catheter before. Allergies/Adverse Reactions: Allergies NO KNOWN ALLERGY Allergy (Unverified 06/03/20 10:00) Home Medications: Ambulatory Orders RX: Aspirin [Aspirin Adult Low Strengt] 81 mg PO DAILY 07/31/19 RX: Lisinopril 40 mg PO DAILY 07/31/19 RX: Lovastatin 20 mg PO DAILY 07/31/19 RX: Metoprolol Tartrate 50 mg PO BID 07/31/19 RX: Ranitidine HCl [Acid Criminal Psychologist] 150 mg PO DAILY 07/31/19 RX: Cyclobenzaprine HCl [Flexeril] 10 mg PO Q8H PRN tab 08/07/19 RX: HYDROcodone 5MG/APAP 325MG [[place] 5/325] 1 ea PO Q4H PRN tab 08/07/19 RX: Nicotine Patch 14 mg [Habitrol Patch 14mg] 1 ea TD DAILY patch 08/07/19 Rivaroxaban [Xarelto] 10 mg PO DAILY #8 tab 08/07/19 RX: Tramadol HCl 50 mg PO Q6HR #20 tab 02/11/20 RX: Ciprofloxacin HCl [Cipro] 500 mg PO BID 14 Days #28 tab 06/03/20 Review of Systems - Review of Systems Review of Systems: 06/03/20 10:16 As per HPI All other Systems: Reviewed and Negative Past Medical History (General) - Patient Medical History Hx Seizures: No Hx Stroke: No Hx Asthma: No Hx of COPD: No Hx Cardiac Disorders: Yes Hx Congestive Heart Failure: No Hx Pacemaker: No Hx Hypertension: Yes Hx Diabetes: No Hx MRSA: No - Vaccination History Hx Tetanus, Diphtheria Vaccination: No Hx Influenza Vaccination: No Hx Pneumococcal Vaccination: Yes - Social History Hx Alcohol Use: No Hx Substance Use: No Hx Physical Abuse: No Hx Emotional Abuse: No Family Medical History - Family History Mother Family History: Unknown Physical Exam - Physical Exam General Appearance: Alert, Comfortable, No apparent distress Eyes, Ears, Nose, Throat Exam: PERRL/EOMI, normal ENT inspection Neck: non-tender, full range of motion, supple, normal inspection Cardiovascular/Respiratory: regular rate, rhythm, no M/R/G, normal peripheral pulses, normal breath sounds, no respiratory distress Gastrointestinal/Abdominal: non tender, soft, no pulsatile mass, other - marked distension at the suprapubic region upon palpation Male Genital Exam: normal genitalia, no hernia Back Exam: normal inspection, no CVA tenderness, no vertebral tenderness Extremity: normal range of motion, non-tender, normal inspection Neurologic: cellular phone repairer II-XII nml as tested, no motor/sensory deficits, alert, normal mood/affect, oriented x 3 Skin Exam: normal color, warm/dry Progress - Progress Progress: 06/03/20 10:16 Dysuria, hesitancy, frequency -Appears suspicious for acute prostatitis versus BPH versus UTI versus other acute bladder outlet obstruction/partial obstruction -We will obtain basic blood work and bedside ultrasound. Will attempt Simons catheter placement in the ED -Consider urology consultation 06/03/20 11:31 -Bedside sono of the bladder revealed approximately greater than 1500 mL of urine in the bladder. Prostate exam performed which revealed enlarged prostate without appreciable tenderness or bogginess or masses. Labs are consistent with UTI. Concern for possible acute prostatitis. Serum WBC is normal and kidney function appears normal. Will Place Simons catheter and leave in place upon discharge. We will give Cipro 500 mg p.o. twice daily x2 weeks for acute prostatitis. Urine cultures have been sent. We will also refer for outpatient urology consultation. 06/03/20 12:30 -RN reported pt had 1800 cc yellow urine output upon simons catheter placement. The catheter was clamped temporarily during the drainage to prevent bladder spasm. Pt reported marked relief. Nestor Santos MD Billing #[id number] 06/03/20 09:54 Sodium Chloride 0.9% (Flush) [Saline Flush Syringe] 10 ml IV PRN PRN 06/03/20 10:42 URINE CULTURE W/COLONY COUNT Stat 06/03/20 11:30 Catheter:Simons QSHIFT Laboratory Results - last 24 hr 06/03/20 06/03/20 06/03/20 10:05 10:05 10:05 WBC 8.7 RBC 4.65 L Hgb 14.7 Hct 42.9 MCV 92.2 MCH 31.7 H MCHC 34.3 RDW 14.6 H Plt Count 148 MPV 9.2 Absolute Neuts (auto) 5.20 Absolute Lymphs (auto) 2.80 Absolute Monos (auto) 0.50 Absolute Eos (auto) 0.20 Absolute Basos (auto) 0.10 Neutrophils % 59.3 Lymphocytes % 32.2 Monocytes % 5.7 Eosinophils % 2.2 Basophils % 0.6 Sodium 136 Potassium 3.9 Chloride 106 Carbon Dioxide 22 Anion Gap 11.9 L BUN 14 Creatinine 0.74 BUN/Creatinine Ratio 18.9 Random Glucose 96 Serum Osmolality 272.3 L Calcium 9.5 Total Bilirubin 0.9 Direct Bilirubin 0.1 Indirect Bilirubin 0.8 AST 18 ALT < 8 L Alkaline Phosphatase 79 Serum Total Protein 8.0 Albumin 4.1 Amylase 94 Lipase 46 Urine Color Urine Appearance Urine pH Ur Specific [place] Urine Protein Urine Glucose (UA) Urine Ketones Urine Blood Urine Nitrite Urine Bilirubin Urine Urobilinogen Ur Leukocyte Esterase Urine RBC Urine WBC Ur Epithelial Cells Amorphous Sediment Urine Bacteria 06/03/20 10:42 WBC RBC Hgb Hct MCV MCH MCHC RDW Plt Count MPV Absolute Neuts (auto) Absolute Lymphs (auto) Absolute Monos (auto) Absolute Eos (auto) Absolute Basos (auto) Neutrophils % Lymphocytes % Monocytes % Eosinophils % Basophils % Sodium Potassium Chloride Carbon Dioxide Anion Gap BUN Creatinine BUN/Creatinine Ratio Random Glucose Serum Osmolality Calcium Total Bilirubin Direct Bilirubin Indirect Bilirubin AST ALT Alkaline Phosphatase Serum Total Protein Albumin Amylase Lipase Urine Color Yellow Urine Appearance Cloudy Urine pH 7.0 Ur Specific [place] 1.015 Urine Protein Trace Urine Glucose (UA) Negative Urine Ketones Negative Urine Blood Small H Urine Nitrite Negative Urine Bilirubin Negative Urine Urobilinogen 0.2 Ur Leukocyte Esterase Large H Urine RBC 3-5 H Urine WBC Tntc H Ur Epithelial Cells 0 Amorphous Sediment 1+ Urine Bacteria 2+ H Departure - Departure Clinical Impression: Acute bacterial prostatitis, Urinary obstruction, unspecified Urinary tract infection Qualifiers: Urinary tract infection type: acute cystitis Hematuria presence: without hematuria Qualified Code(s): N30.00 - Acute cystitis without hematuria Time of Disposition: 11:33 Disposition: Discharge to Home or Self Care Condition: Fair Departure Forms: ED Discharge - Pt. Copy, Patient Portal Self Enrollment Instructions: Urinary Tract Infection, Adult (DC), Benign Prostatic Hyperplasia (Enlarged Prostate) (DC) Diet: resume usual diet Activity: increase activity as tolerated Referrals: Claritza Briseno FNP [Primary Care Provider] - 1-2 Weeks LOUISE PUENTE MD [Consulting Staff] - 1-2 Weeks Prescriptions: RX: Ciprofloxacin HCl [Cipro] 500 mg PO BID 14 Days #28 tab Home Medications: Ambulatory Orders RX: Aspirin [Aspirin Adult Low Strengt] 81 mg PO DAILY 07/31/19 RX: Lisinopril 40 mg PO DAILY 07/31/19 RX: Lovastatin 20 mg PO DAILY 07/31/19 RX: Metoprolol Tartrate 50 mg PO BID 07/31/19 RX: Ranitidine HCl [Acid Criminal Psychologist] 150 mg PO DAILY 07/31/19 RX: Cyclobenzaprine HCl [Flexeril] 10 mg PO Q8H PRN tab 08/07/19 RX: HYDROcodone 5MG/APAP 325MG [[place] 5/325] 1 ea PO Q4H PRN tab 08/07/19 RX: Nicotine Patch 14 mg [Habitrol Patch 14mg] 1 ea TD DAILY patch 08/07/19 Rivaroxaban [Xarelto] 10 mg PO DAILY #8 tab 08/07/19 RX: Tramadol HCl 50 mg PO Q6HR #20 tab 02/11/20 RX: Ciprofloxacin HCl [Cipro] 500 mg PO BID 14 Days #28 tab 06/03/20 Additional Instructions: Take the antibiotics as directed and finish the full course even if well. Follow-up with urology in the next 1 to 2 weeks. Call today to arrange her appointment time. Return to the ED if your symptoms return or other concerning symptoms develop. Follow-up with your regular doctor also as scheduled or sooner as needed. Keep the Simons catheter in place until your urology clinic visit. Wash the area gently with warm soap and water once daily and pat dry. Afterwards to protect the skin of the urethra of the penis apply generous amounts of barrier protectant such as Vaseline.
[2020-06-03] MEDS: SODIUM CHLORIDE 0.9% (FLUSH) 10 ML SYG IV PRN (11:14)
[2020-06-03] MEDS: CIPROFLOXACIN 500 MG TAB PO ONE (11:52)
[2020-06-03 15:07] VITALS: BP 147/92; TEMP 98; O2SAT 100
== END 2020-06-03 13:35 | disposition home or self-care (01) ==
LOC: ER 09:42
DX: N41.0 Acute prostatitis (principal); N30.00 Acute cystitis without hematuria; B96.89 Other specified bacterial agents as the cause of diseases classified elsewhere; N13.9 Obstructive and reflux uropathy, unspecified; I10 Essential (primary) hypertension; Z79.899 Other long term (current) drug therapy; Z79.82 Long term (current) use of aspirin